=== PATIENT | female | born 1945 | race African-American/Black ===

== ENCOUNTER 2021-01-21 10:38 | Day surgery (SDC) | payer MEDICARE, SELFPAY ==
[2021-01-11 16:47] VITALS: BMI 51.2
[2021-01-16 16:56] VITALS: BMI 49.6
--- NOTE | 2021-01-17 08:04 | MHC.SHP ---
Pre-Procedural Eval Section A Date of Service: 01/17/21 The patient is an INPATIENT: No The History & Physical has been completed within 30 days and I have reviewed it.: Yes Section B Chief Complaint: Cataract Right Eye Allergies: Allergies Allergy/AdvReac Type Severity Reaction Status Date / Time shrimp Allergy Severe Anaphylaxis Verified 01/16/21 16:55 oxycodone [From Percodan] Allergy Intermediate Anxiety Verified 01/16/21 16:55 lisinopril AdvReac Intermediate Cough Verified 01/16/21 16:55 Plan Diagnosis/Plan: Unchanged I have reviewed the history and physical and performed a pertinent physical examination on my patient. No changes have occurred unless specified.
--- NOTE | 2021-01-18 10:43 | HO.ANESPROP2 ---
Documented by User: Nikki Gray 01/18/21 10:45 HPI - Anesthesia Eval Consult details Narrative: 75yo F for Right Cataract Extraction IOL Insertion PCP cleared No previous cataract on record PMFSH Past Medical History Medical History CHF (congestive heart failure) Gout HTN (hypertension) RANDEE on CPAP Psoas muscle strain Surgical History Surgical History History of bilateral knee arthroplasty History of loop electrical excision procedure (LEEP) Hx of colonoscopy Hx of rotator cuff surgery Social History Social History Alcohol intake: never Patient Tobacco Use Status: Never used Tobacco Use of substances other than those prescribed or required for medical reasons: No Are you DNR?: No Advance Directives: No Advance Directives Information Provided: No Advance Directives on File: No Meds Allergies Allergy/AdvReac Type Severity Reaction Status Date / Time shrimp Allergy Severe Anaphylaxis Verified 01/16/21 16:55 oxycodone [From Percodan] Allergy Intermediate Anxiety Verified 01/16/21 16:55 lisinopril AdvReac Intermediate Cough Verified 01/16/21 16:55 Home Medications Medication Instructions Recorded Confirmed Last Taken Type allopurinol 300 mg PO DAILY 01/11/21 01/11/21 Unknown History aspirin [Aspir-81] 81 mg PO DAILY 01/11/21 01/11/21 01/20/21 History carvedilol 50 mg PO BID 01/11/21 01/11/21 01/21/21 History chlorthalidone 25 mg PO DAILY 01/11/21 01/11/21 Unknown History cholecalciferol (vitamin D3) 25 mcg PO DAILY 01/11/21 01/11/21 Unknown History [Vitamin D3] furosemide 20 mg PO DAILY 01/11/21 01/11/21 Unknown History losartan 100 mg PO DAILY 01/11/21 01/11/21 01/21/21 History potassium chloride 20 meq PO DAILY 01/11/21 01/11/21 Unknown History Exam Exam Date and Time: January 18, 2021 1043 Height,Weight and Vital Signs: Height 5 ft 4 in Weight 131.088 kg Assessment and Plan Assessment Anesthesia Assessment: Chart Reviewed Documented by User: Anil Loaiza 01/21/21 15:28 PMFSH Past Medical History Medical History CHF (congestive heart failure) Gout HTN (hypertension) RANDEE on CPAP Psoas muscle strain Surgical History Surgical History History of bilateral knee arthroplasty History of loop electrical excision procedure (LEEP) Hx of colonoscopy Hx of rotator cuff surgery Social History Social History Alcohol intake: never Patient Tobacco Use Status: Never used Tobacco Use of substances other than those prescribed or required for medical reasons: No Are you DNR?: No Advance Directives: No Advance Directives Information Provided: No Advance Directives on File: No Meds Allergies Allergy/AdvReac Type Severity Reaction Status Date / Time shrimp Allergy Severe Anaphylaxis Verified 01/16/21 16:55 oxycodone [From Percodan] Allergy Intermediate Anxiety Verified 01/16/21 16:55 lisinopril AdvReac Intermediate Cough Verified 01/16/21 16:55 Home Medications Medication Instructions Recorded Confirmed Last Taken Type allopurinol 300 mg PO DAILY 01/11/21 01/11/21 Unknown History aspirin [Aspir-81] 81 mg PO DAILY 01/11/21 01/11/21 01/20/21 History carvedilol 50 mg PO BID 01/11/21 01/11/21 01/21/21 History chlorthalidone 25 mg PO DAILY 01/11/21 01/11/21 Unknown History cholecalciferol (vitamin D3) 25 mcg PO DAILY 01/11/21 01/11/21 Unknown History [Vitamin D3] furosemide 20 mg PO DAILY 01/11/21 01/11/21 Unknown History losartan 100 mg PO DAILY 01/11/21 01/11/21 01/21/21 History potassium chloride 20 meq PO DAILY 01/11/21 01/11/21 Unknown History Exam Airway Mallampati Class: III TM Dist: >3cm Neck ROM: Full Heart: [id number] Lungs: cta b/l Assessment and Plan Assessment Anesthesia Assessment: Anesthesia Plan Discussed, PAT Visit and Chart Reviewed Final Anesthetic Review NPO: Yes ASA Class: III Final Preanesthetic Review: No Changes in Pt Med Stat, Meds/Allgs Chart Reviewed and Consent Obtained/Reviewed Patient Risk: Intermediate Procedure Risk: Low Anesthetic Plan Anesthetic Plan: MAC: and Agree w/ Assess. and Plan Disposition: Standard PACU
[2021-01-21 13:35] VITALS: BP 151/58; PULSE 77; RESP 18; TEMP 36.4; O2SAT 96
[2021-01-21] MEDS: Tetracaine HCl/PF 0.5% Oph Sol 4 ML DROPS 1 DROP EYE-RIGHT (13:44)
[2021-01-21] MEDS: Lactated Ringers 500 ML 50 ML IV (13:44)
[2021-01-21] MEDS: Phenylephrine HCL 2.5% Oph SoL 2 ML BOTTLE 1 DROP EYE-RIGHT ×3 (13:45→13:46)
[2021-01-21] MEDS: Tropicamide 1 % Ophth Sol 3 ML BTL 1 DROP EYE-RIGHT ×3 (13:45)
--- NOTE | 2021-01-21 15:24 | HO.PNOPHT ---
Ophthalmology Procedure Procedure Date of Service: 01/21/21 Ophthalmology Viscoelastic: Deonte Duongt Dual Pack Pro Ophthalmology Lenses: TECZEINA [id number] (22) Procedure Notes: PREOPERATIVE DIAGNOSIS: Decreased visual acuity right eye secondary to cataract POSTOPERATIVE DIAGNOSIS: Same PROCEDURE: Right cataract extraction with intraocular lens insertion SURGEON: London Ma M.D. ANESTHESIA: Topical/MAC ESTIMATED BLOOD LOSS: None COMPLICATIONS: None After obtaining informed consent, the patient was brought to the operating room suite and placed in the supine position. After adequate sedation per anesthesia, topical drops of Tetracaine were given to the right eye. The eye was then prepped and draped in the usual sterile fashion. The operating room microscope was then positioned over the operative eye and a lid speculum placed. A paracentesis was created. Viscoelastic was then instilled into the anterior chamber. A three plane incision was then created temporally, utilizing a 2.85 mm keratome. Capsulotomy forceps were then utilized to create a circular tear capsulotomy. Hydrodissection and hydrodelineation were carried out until adequate mobilization of the nucleus occurred. Phacoemulsification was then utilized to remove the dense central nucleus followed by removal of the cortical material utilizing the automated aspiration irrigation unit. Viscoelastic was instilled into the posterior capsular bag followed by placement of a posterior chamber intraocular lens without difficulty. The residual Viscoelastic was then removed utilizing the automated IA machine. The wound was checked and found to be watertight. The patient tolerated the procedure well and the lid speculum was removed. Miochol was instilled resulting in a small rouynd pupil.Intracameral injection of Vigamox0.1 mL followed by a subtenon injection of Kenalog-40 0.2 mL were administered. The patient will be seen in the a.m.
[2021-01-21 16:05] VITALS: BP 136/56; PULSE 62; RESP 16; TEMP 36.1; O2SAT 99
== END 2021-01-21 16:19 | disposition home or self-care (01) ==
PROVIDERS: PCP Internal Medicine; Visit Provider Ophthalmology
PROC: (CPT 66985; principal; 2021-01-21 14:40)
DX: H25.11 Age-related nuclear cataract, right eye (principal); H54.7 Unspecified visual loss; I11.0 Hypertensive heart disease with heart failure; I50.9 Heart failure, unspecified; M10.9 Gout, unspecified; G47.33 Obstructive sleep apnea (adult) (pediatric); Z88.8 Allergy status to other drugs, medicaments and biological substances; Z79.82 Long term (current) use of aspirin; Z79.899 Other long term (current) drug therapy
CPT/HCPCS: 66984; J2250; J3010; J3300; V2632

== ENCOUNTER 2021-02-04 07:34 | Day surgery (SDC) | payer MEDICARE, SELFPAY ==
[2021-01-11 16:51] VITALS: BMI 51.2
--- NOTE | 2021-01-30 13:05 | MHC.SHP ---
Pre-Procedural Eval Section A Date of Service: 01/30/21 The patient is an INPATIENT: No The History & Physical has been completed within 30 days and I have reviewed it.: Yes Section B Chief Complaint: Cataract Left Eye Allergies: Allergies Allergy/AdvReac Type Severity Reaction Status Date / Time shrimp Allergy Severe Anaphylaxis Verified 01/16/21 16:55 oxycodone [From Percodan] Allergy Intermediate Anxiety Verified 01/16/21 16:55 lisinopril AdvReac Intermediate Cough Verified 01/16/21 16:55 Plan Diagnosis/Plan: Unchanged I have reviewed the history and physical and performed a pertinent physical examination on my patient. No changes have occurred unless specified.
--- NOTE | 2021-02-01 11:43 | HO.ANESPROP2 ---
Documented by User: Nikki Gray 02/01/21 11:44 HPI - Anesthesia Eval Consult details Narrative: 75yo F for Left Cataract Extraction IOL Insertion Clearance pending Right eye 01/21/21: Fent 100, Midaz 2 PMFSH Past Medical History Medical History CHF (congestive heart failure) Gout HTN (hypertension) RANDEE on CPAP Psoas muscle strain Surgical History Surgical History History of bilateral knee arthroplasty History of loop electrical excision procedure (LEEP) Hx of colonoscopy Hx of rotator cuff surgery Social History Social History Alcohol intake: never Patient Tobacco Use Status: Never used Tobacco Use of substances other than those prescribed or required for medical reasons: No Are you DNR?: No Advance Directives: No Advance Directives Information Provided: No Advance Directives on File: No Meds Allergies Allergy/AdvReac Type Severity Reaction Status Date / Time shrimp Allergy Severe Anaphylaxis Verified 01/16/21 16:55 oxycodone [From Percodan] Allergy Intermediate Anxiety Verified 01/16/21 16:55 lisinopril AdvReac Intermediate Cough Verified 01/16/21 16:55 Home Medications Medication Instructions Recorded Confirmed Last Taken Type allopurinol 300 mg PO DAILY 01/11/21 01/11/21 Unknown History aspirin [Aspir-81] 81 mg PO DAILY 01/11/21 01/11/21 01/20/21 History carvedilol 50 mg PO BID 01/11/21 01/11/21 01/21/21 History chlorthalidone 25 mg PO DAILY 01/11/21 01/11/21 Unknown History cholecalciferol (vitamin D3) 25 mcg PO DAILY 01/11/21 01/11/21 Unknown History [Vitamin D3] furosemide 20 mg PO DAILY 01/11/21 01/11/21 Unknown History losartan 100 mg PO DAILY 01/11/21 01/11/21 01/21/21 History potassium chloride 20 meq PO DAILY 01/11/21 01/11/21 Unknown History Exam Exam Date and Time: February 01, 2021 1143 Height,Weight and Vital Signs: Height 5 ft 4 in Weight 135.624 kg Assessment and Plan Assessment Anesthesia Assessment: Chart Reviewed Documented by User: Nena Roldan 02/04/21 09:49 PMFSH Past Medical History Medical History CHF (congestive heart failure) Gout HTN (hypertension) RANDEE on CPAP Psoas muscle strain Surgical History Surgical History History of bilateral knee arthroplasty History of loop electrical excision procedure (LEEP) Hx of colonoscopy Hx of rotator cuff surgery Social History Social History Alcohol intake: never Patient Tobacco Use Status: Never used Tobacco Use of substances other than those prescribed or required for medical reasons: No Are you DNR?: No Advance Directives: No Advance Directives Information Provided: No Advance Directives on File: No Meds Allergies Allergy/AdvReac Type Severity Reaction Status Date / Time shrimp Allergy Severe Anaphylaxis Verified 01/16/21 16:55 oxycodone [From Percodan] Allergy Intermediate Anxiety Verified 01/16/21 16:55 lisinopril AdvReac Intermediate Cough Verified 01/16/21 16:55 Home Medications Medication Instructions Recorded Confirmed Last Taken Type allopurinol 300 mg PO DAILY 01/11/21 01/11/21 Unknown History aspirin [Aspir-81] 81 mg PO DAILY 01/11/21 01/11/21 01/20/21 History carvedilol 50 mg PO BID 01/11/21 01/11/21 01/21/21 History chlorthalidone 25 mg PO DAILY 01/11/21 01/11/21 Unknown History cholecalciferol (vitamin D3) 25 mcg PO DAILY 01/11/21 01/11/21 Unknown History [Vitamin D3] furosemide 20 mg PO DAILY 01/11/21 01/11/21 Unknown History losartan 100 mg PO DAILY 01/11/21 01/11/21 01/21/21 History potassium chloride 20 meq PO DAILY 01/11/21 01/11/21 Unknown History Exam Airway Mallampati Class: III TM Dist: >3cm Neck ROM: Full Heart: rrr Lungs: cta Assessment and Plan Assessment Anesthesia Assessment: Anesthesia Plan Discussed and Chart Reviewed Final Anesthetic Review NPO: Yes ASA Class: III Final Preanesthetic Review: No Changes in Pt Med Stat and Consent Obtained/Reviewed Patient Risk: Low Procedure Risk: Low Anesthetic Plan Anesthetic Plan: MAC: Disposition: Standard PACU
[2021-02-04 09:38] VITALS: BP 186/76; PULSE 68; RESP 18; TEMP 36.2; O2SAT 97
[2021-02-04] MEDS: Tetracaine HCl/PF 0.5% Oph Sol 4 ML DROPS 1 DROP EYE-LEFT (09:45)
[2021-02-04] MEDS: Tropicamide 1 % Ophth Sol 3 ML BTL 1 DROP EYE-LEFT ×3 (09:46)
[2021-02-04] MEDS: Phenylephrine HCL 2.5% Oph SoL 2 ML BOTTLE 1 DROP EYE-LEFT ×3 (09:46→09:47)
[2021-02-04 09:47] VITALS: BP 177/72
[2021-02-04] MEDS: Lactated Ringers 500 ML 50 ML IV (10:01)
--- NOTE | 2021-02-04 10:50 | HO.PNOPHT ---
Ophthalmology Procedure Procedure Date of Service: 02/04/21 Ophthalmology Viscoelastic: Healjulia Duet Dual Pack Pro Ophthalmology Lenses: TECZEINA [id number] (21) Procedure Notes: PREOPERATIVE DIAGNOSIS: Decreased visual acuity left eye secondary to cataract POSTOPERATIVE DIAGNOSIS: Same PROCEDURE: Left cataract extraction with intraocular lens insertion SURGEON: London Ma M.D. ANESTHESIA: Topical/MAC ESTIMATED BLOOD LOSS: None COMPLICATIONS: None After obtaining informed consent, the patient was brought to the operation room suite and placed in the supine position. After adequate sedation per anesthesia, topical drops of Tetracaine were given to the left eye. The eye was then prepped and draped in the usual sterile fashion. The operating room microscope was then positioned over the operative eye and a lid speculum placed. A paracentesis was created. Viscoelastic was then instilled into the anterior chamber. A three plane incision was then created temporally, utilizing a 2.85 mm keratome. Capsulotomy forceps were then utilized to create a circular tear capsulotomy. Hydrodissection and hydrodelineation were carried out until adequate mobilization of the nucleus occurred. Phacoemulsification was then utilized to remove the dense central nucleus followed by removal of the cortical material utilizing the automated aspiration irrigation unit. Viscoat elastic was instilled into the posterior capsular bag followed by placement of a posterior chamber intraocular lens without difficulty. The residual Viscoat elastic was then removed utilizing the automated IA machine. The wound was check and found to be watertight. The patient tolerated the procedure well and the lid speculum was removed. Intracameral injection of Vigamox 0.1 mL followed by a subtenon injection of Kenalog-40 0.2 mL were administered. The patient will be seen in the a.m.
[2021-02-04 11:16] VITALS: BP 153/61; PULSE 63; RESP 16; TEMP 36.4; O2SAT 97
== END 2021-02-04 11:27 | disposition home or self-care (01) ==
PROVIDERS: PCP Internal Medicine; Visit Provider Ophthalmology
PROC: (CPT 66985; principal; 2021-02-04 11:00)
DX: H25.12 Age-related nuclear cataract, left eye (principal); H54.7 Unspecified visual loss; I11.0 Hypertensive heart disease with heart failure; I50.9 Heart failure, unspecified; G47.33 Obstructive sleep apnea (adult) (pediatric); M10.9 Gout, unspecified; Z99.89 Dependence on other enabling machines and devices; Z79.82 Long term (current) use of aspirin; Z79.899 Other long term (current) drug therapy
CPT/HCPCS: 66984; J2250; J3010; J3300; V2632

== ENCOUNTER 2023-10-23 07:00 | Outpatient (RCR) | payer MEDICARE, OTHER, SELFPAY | END 2023-11-03 08:08 | disposition home or self-care (01) | LOC: HO.CR 07:00 | PROVIDERS: PCP Internal Medicine; Visit Provider Nurse Practitioner Acute Care | DX: I50.9 Heart failure, unspecified (principal) | CPT/HCPCS: 93798 ==

== ENCOUNTER 2024-10-10 07:00 | Outpatient (RCR) | payer MEDICARE, OTHER, SELFPAY | END 2024-10-10 13:13 | disposition home or self-care (01) | LOC: HO.CR 07:00 | PROVIDERS: PCP Internal Medicine; Visit Provider Radiology Diagnostic Radiology | DX: I50.30 Unspecified diastolic (congestive) heart failure (principal) | CPT/HCPCS: 93798 ==